=== PATIENT | male | born 1960 | race Caucasian/White ===

== ENCOUNTER 2024-04-02 09:14 | Outpatient (CLI) | payer MEDICARE, SELFPAY ==
--- NOTE | ~2024-04-02 | US_ITS ---
US arterial ankle brachial ind INDICATION: Peripheral vascular disease TECHNIQUE: Segmental pressures and plethysmographic and Doppler waveforms of the brachial and lower e xtremity arteries were obtained. COMPARISON: None. FINDINGS: Right and left brachial artery pressures of 151 mm Hg and 134 mm Hg, respectively, are concordant (no rmal difference <= 30 mmHg). The right ankle-brachial index (ALEXIS) is 0.46 (normal >= 0.9-1.0). The right great toe-brachial index (TBI) is 0.32 (normal >= 0.60). The left ALEXIS is 0.74. The left TBI is 0.5. IMPRESSION: 1. Diminished bilateral ankle and toe brachial indices consistent with moderate right and mild left p eripheral arterial disease. Reviewed, dictated and finalized at location B. IMPRESSION: 1. Diminished bilateral ankle and toe brachial indices consistent with moderate right and mild left peripheral arterial disease.
== END 2024-04-02 09:15 | disposition home or self-care (01) ==
LOC: ANHIMG 09:17
PROVIDERS: PCP Internal Medicine; Visit Provider Physician Assistant
DX: I73.9 Peripheral vascular disease, unspecified (principal)
CPT/HCPCS: 93922

== ENCOUNTER 2025-03-14 11:05 | Outpatient (CLI) | payer MEDICARE, SELFPAY ==
--- NOTE | ~2025-03-14 | CT_ITS ---
CT Scan of the Chest without Contrast: Clinical Indication: Lung cancer screening, nicotine dependence Technique: Contiguous sections were acquired throughout the chest without intravenous contrast. Dose reduction technique was used on this scan by utilizing automated exposure control and iterative recon struction technique. The dose-length product (DLP) was 69.64 mGy-cm. Findings: There is no evidence of any significant mediastinal, hilar or axillary lymphadenopathy. The calcified right hilar lymph nodes present. There is no evidence of pleural or pericardial effusion. There is mild biapical scarring. Large calcified right lower lobe granuloma present. Images through the upper abdomen reveal no abnormalities. Impression: Lung RADS 2: Benign appearance. 12 month follow-up screening CT advised. Reviewed, dictated and finalized at location . Impression: Lung RADS 2: Benign appearance. 12 month follow-up screening CT advised.
--- OUTSIDE RECORDS SUMMARY | 2025-03-14 11:11 | XMS_ITS | Referral Summary ---
Author Organization [facility] Address [address] [place] [address] Phone Care Team Providers Care Marine Superintendent Name Role Phone Ayan Us MD Primary Care Provider + [phone] Allergies No known active allergies Medications atorvastatin (LIPITOR) 10 mg tablet Take 1 tablet (10 mg total) by mouth daily Active Jardiance 10 mg tablet Take 1 tablet every day by oral route. Active glimepiride (AMARYL) 2 mg tablet Take 1 tablet (2 mg total) by mouth daily Active NovoLIN N 100 unit/mL vial for injection INJECT 25 UNITS EVERY MORNING AND 8 UNITS EVERY EVENING Active metFORMIN (GLUCOPHAGE) 500 mg tablet TAKE 2 TABLETS IN THE MORNING AND 1 TABLET IN THE EVENING Active tamsulosin (FLOMAX) 0.4 mg extended release capsule Take 1 capsule (0.4 mg total) by mouth nightly Active Active Problems Problem Noted Date Diagnosed Date Atherosclerosis of [place] of right lower extremity with intermittent claudication 07/15/2024 Mixed hyperlipidemia 07/15/2024 Tobacco abuse disorder 07/15/2024 Resolved Problems Problem Noted Date Diagnosed Date Resolved Date Bilateral lower extremity pain 07/15/2024 07/15/2024 Social History Tobacco Use Types Packs/Day Years Used Date Smoking Tobacco: Every Day Cigarettes Tobacco Cessation:Ready to Q uit: Not Asked; Counseling Given: Not Answered Sex and Gender Information Value Date Recorded Sex Assigned at Not on file Legal Sex Male 11:21 AM [employer] Gender Identity Not on file Sexual Orientation Not on file Last Filed Vital Signs Vital Sign Reading Time Taken Comments Blood Pressure 130/60 12/03/2024 12:50 PM [employer] Pulse 63 12/03/2024 12:50 PM [employer] Temperature - - Respiratory Rate 18 07/15/2024 1:10 PM CDT Oxygen Saturation - - Inhaled Oxygen Concentration - - Weight 58.5 kg (129 lb) 12/03/2024 12:50 PM [employer] Height 162.6 cm (5' 4 ) 12/03/2024 12:50 PM [employer] Body Mass Index 22.14 12/03/2024 12:50 PM [employer] Plan of Treatment Not on file Insurance [employer] MEDICARE FORMERLY [facility], [facility] MEDICARE Care Teams Marine Superintendent Relationship Specialty Start Date End Date Ayan Us MD [address] [place] [address] PCP - General Internal Medicine 06/27/24
--- OUTSIDE RECORDS SUMMARY | 2025-03-14 11:11 | XMS_ITS | Data Portability ---
Author Organization [facility] Dawn [facility] Address [address] [place] [address] Care Team Providers Care Vegetable Grader Name Role Phone PALLAVI US Primary Care Provider Assessment Encounter Date Assessment Date Assessment LastModified by Organization Details LastModified Time 02/26/2024 02/26/2024 Arterial duplex of both legs he was advised to quit smoking wound ill effects of tobacco which include but not limited to increased tumors of the aerodigestive tract increased incidence of heart attack stroke and cancer likely the sudden or chronic medical illness. Blood pressure is well-controlled targets for blood pressure A1c and LDL of been discussed to follow-up with me in about 4 months we will review blood work and noninvasive vascular testing as it becomes available also request old records [email or web address] Not available 03/02/2024 16:05:19 06/24/2024 06/24/2024 smoking quitting care instructions discussed multiple modalities Chantix nicotine patch hypnosis auricular therapy Nicotrol inhaler nicotine gum all discussed and he turns them all down was instructed in peripheral arterial disease and how tobacco can accelerate that worse case scenario that he ends up with an amputation because of acute occlusion in the arteries to his legs or starts to develop nonhealing wounds that can become infected sepsis and result in his demise. His insurance company will not pay for a CT angiogram despite the fact that he is a diabetic that smokes with hyperlipidemia hypertension and has demonstrated abnormalities on ALEXIS and symptomatic peripheral arterial occlusive disease. To that end I will refer him to an interventionalist . He will start 81 mg aspirin Not available 07/06/2024 17:58:03 09/16/2024 09/16/2024 colonoscopy bloo d work tobacco cessation discussed in detail obtain old records see when he had his last LD CT podiatry. targets for blood pressure LDL and A1c discussed follow up 4 months [email or web address] Not available 09/29/2024 21:07:18 01/06/2025 01/06/2025 He needs to quit smoking his insight into this peripheral arterial disease is poor he thinks that since his insurance company did not approve the CT angiogram that things are not that bad I have told him that if he gets an amputation because of progressive peripheral arterial disease that he does try does not try to mitigate the best he can through walking program following cardiology's instructions eating right good blood sugar control good blood pressure control not smoking good cholesterol control that the 1 year mortality on that can be as high as 25% other disease processes have been discussed he needs to get his LD CT done also needs a diabetic foot exam refuses any immunizations today he says he has a colonoscopy scheduled for February 27 follow up 4 months [email or web address] Not available 03/01/2025 22:59:05 Plan of Treatment Reminders Order Date Submit Date Provider Last Modified By Organization Details Last Modified Time Details Appointments ANY 15 2024 09:15A Morgan Us MD Not available Not available Not available Lab HbA1c (hemoglob in A1c), blood 2024 025 [facility], [address] [facility], [facility] [address], [place], [address], 01/07/2025 13:08:59 albumin/c reatinine , mass ratio, urine 2024 025 [facility], [address] [facility], [facility], [place], [address], 01/07/2025 13:08:56 CBC w/ auto diff 2024 025 [facility], [address] [facility], [facility], [place], [address], 01/07/2025 13:09:00 CMP, serum or plasma 2024 025 [facility], [address] [facility], [facility], [place], [address], 01/07/2025 13:08:58 lipid panel, serum 2024 025 [facility], [address], [address], 01/07/2025 13:08:57 HbA1c (hemoglob in A1c), blood 2023 024 [facility], [address], [address], [place], [address], 09/17/2024 10:14:56 lipid panel, serum 2023 024 [facility], [address], [address], [place], [address], 09/17/2024 10:14:53 CMP, serum or plasma 2023 024 [facility], [address], [address], [place], [address], 09/17/2024 10:14:54 CBC w/ auto diff 2023 024 [facility], [address], [address], [place], [address], 09/17/2024 10:14:57 PSA, total, serum or plasma 2023 024 [facility], [address], [address], [place], [address], 02/27/2024 04:36:32 HbA1c (hemoglob in A1c), blood 2023 024 [facility], [address], [address], [place], [address], 02/27/2024 04:36:31 lipid panel, serum 2023 024 [facility], [address] [facility] [address], [address], [place], [address], 02/27/2024 04:36:29 CMP, serum or plasma 2023 024 [facility], [address] [facility], [address], [place], [address], 02/27/2024 04:36:30 CBC w/ auto diff 2023 024 [facility], [address] [facility], [address], [place], [address], 02/27/2024 04:36:31 Referral podiatris t referral 2024 025 MAT[facility] Hutchins Jr DPM, [address], [address], [place], [address], 02/24/2025 16:05:09 cardiolog ist referral 2023 024 [facility] Winston MD, [address] [place], [address], 08/21/2024 11:23:35 Procedures colonosco py screening (PROC) [address] [facility], [address], [address], [place], [address], 03/03/2025 14:43:27 Surgeries None recorded. Imaging US, duplex, arterial, lower extremity , complete 2023 024 [facility] (Im[facility]), [address], [place], [address], 04/09/2024 14:31:29 Medication Orders atorvasta tin 10 mg tablet 2024 025 [email or web address] [place], [address], 01/06/2025 11:58:12 Patient TargetsNo targets recorded. Patient Instructions Encounter Date Encounter Id Patient Instructions Last Modified By Organization Details Last Modified Time 06/24/2024 [id number] Quitting Tobacco : Care Instructions [email or web address] Not available 06/24/2024 13:29:56 09/16/2024 [id number] Quitting Tobacco : Care Instructions [email or web address] Not available 09/16/2024 12:27:35 A healthy lifestyle: care instructions Not available 09/16/2024 12:27:35 01/06/2025 [id number] A healthy lifestyle: care instructions [email or web address] Not available 01/06/2025 11:58:12 Reason for Referral Scale Model Maker Referral for Pe ripheral vascular disease Referring Physician: Pallavi Us, Internal Medicine, Encounter Date: 06/24/2024 Holder Pile Driving Referral for Type 2 diabetes mellitus Referring Physician: Pallavi Us, Internal Medicine, Encounter Date: 01/06/2025 Results Created Date Observation Date Name Description Value Unit Range Abnormal Flag Note LastModifiedBy Organization Detail LastModifiedTime 02/26/20 24 02/27/2024 LIPID PANEL cholesterol, total 157 mg/dL 100-19 9 Not Available [facility] ([facility]) [address] [facility], [place], [address], 02/27/2024 04:36:29 02/26/20 24 02/27/2024 LIPID PANEL triglyceride s 87 mg/dL 0-149 Not Available [facility] ([facility]) [address] [place], [address], 02/27/2024 04:36:29 02/26/20 24 02/27/2024 LIPID PANEL HDL cholesterol 63 mg/dL >39 Not Available [facility] ([facility]) [address] [place], [address], 02/27/2024 04:36:29 02/26/20 24 02/27/2024 LIPID PANEL VLDL cholesterol nathanael 16 mg/dL 5-40 Not Available [facility] ([facility]) [address] [facility], [place], [address], 02/27/2024 04:36:29 02/26/20 24 02/27/2024 LIPID PANEL [facility] 78 mg/dL 0-99 Not Available [facility] ([facility]) [address] [facility], [place], [address], 02/27/2024 04:36:29 02/26/20 24 02/27/2024 COMP. METAB OLIC PANEL (14) glucose 221 mg/dL 70-99 above high normal Not Available [facility] ([facility]) [address] [facility], [place], [address], 02/27/2024 04:36:30 02/26/20 24 02/27/2024 COMP. METAB OLIC PANEL (14) BUN 18 mg/dL 8-27 Not Available [facility] ([facility]) [address] [place], [address], 02/27/2024 04:36:30 02/26/20 24 02/27/2024 COMP. METAB OLIC PANEL (14) creatinine 0.97 mg/dL 0.76-1 .27 Not Available [facility] ([facility]) [address] [facility], [place], [address], 02/27/2024 04:36:30 02/26/20 24 02/27/2024 COMP. METAB OLIC PANEL (14) eGFR 87 mL/mi n/1.7 3 >59 Not Available [facility] ([facility]) [address] [place], [address], 02/27/2024 04:36:30 02/26/20 24 02/27/2024 COMP. METAB OLIC PANEL (14) BUN/creatini ne ratio 19 10-24 Not Available [facility] ([facility]) [address] [place], [address], 02/27/2024 04:36:30 02/26/20 24 02/27/2024 COMP. METAB OLIC PANEL (14) sodium 140 mmol/ L 134-14 4 Not Available [facility] ([facility]) [address] [facility] [place], [address], 02/27/2024 04:36:30 02/26/20 24 02/27/2024 COMP. METAB OLIC PANEL (14) potassium 4.7 mmol/ L 3.5-5. 2 Not Available [facility] ([facility]) [address], [place], [address], 02/27/2024 04:36:30 02/26/20 24 02/27/2024 COMP. METAB OLIC PANEL (14) chloride 102 mmol/ L 96-106 Not Available [facility] ([facility]) [address] [facility], [place], [address], 02/27/2024 04:36:30 02/26/20 24 02/27/2024 COMP. METAB OLIC PANEL (14) carbon dioxide, total 23 mmol/ L 20-29 Not Available [facility] ([facility]) [address] [facility] [place], [address], 02/27/2024 04:36:30 02/26/20 24 02/27/2024 COMP. METAB OLIC PANEL (14) calcium 9.6 mg/dL 8.6-10 .2 Not Available [facility] ([facility]) [address] [facility], [place], [address], 02/27/2024 04:36:30 02/26/20 24 02/27/2024 COMP. METAB OLIC PANEL (14) protein, total 7.0 g/dL 6.0-8. 5 Not Available [facility] ([facility]) [address] [facility] [place], [address], 02/27/2024 04:36:30 02/26/20 24 02/27/2024 COMP. METAB OLIC PANEL (14) albumin 4.5 g/dL 3.9-4. 9 Not Available [facility] ([facility]) [address] [facility] [place], [address], 02/27/2024 04:36:30 02/26/20 24 02/27/2024 COMP. METAB OLIC PANEL (14) globulin, total 2.5 g/dL 1.5-4. 5 Not Available [facility] ([facility]) [address] [facility], [place], [address], 02/27/2024 04:36:30 02/26/20 24 02/27/2024 COMP. METAB OLIC PANEL (14) A/G ratio 1.8 1.2-2. 2 Not Available [facility] ([facility]) [address] [facility], [place], [address], 02/27/2024 04:36:30 02/26/20 24 02/27/2024 COMP. METAB OLIC PANEL (14) bilirubin, total 0.4 mg/dL 0.0-1. 2 Not Available [facility] ([facility]) [address] [facility] [place], [address], 02/27/2024 04:36:30 02/26/20 24 02/27/2024 COMP. METAB OLIC PANEL (14) alkaline phosphatase 66 IU/L 44-121 Not Available [facility] ([facility]) [address] [facility] [place], [address], 02/27/2024 04:36:30 02/26/20 24 02/27/2024 COMP. METAB OLIC PANEL (14) AST (SGOT) 15 IU/L 0-40 Not Available [facility] ([facility]) [address] [facility] [place], [address], 02/27/2024 04:36:30 02/26/20 24 02/27/2024 COMP. METAB OLIC PANEL (14) ALT (SGPT) 16 IU/L 0-44 Not Available [facility] ([facility]) [address] [facility], [place], [address], 02/27/2024 04:36:30 02/26/20 24 02/27/2024 HEMOG LOBIN A1C hemoglobin A1C 8.6 % 4.8-5. 6 above high normal Predi abete s: 5.7 - 6.4 Diabe liliane: >6.4 Glyce kaden contr ol for adult s with diabe liliane: <7.0 Not Available [facility] ([facility]) [address] [facility], [place], [address], 02/27/2024 04:36:31 02/26/20 24 02/27/2024 CBC WITH DIFFE RENTI AL/PL ATELE T WBC 9.1 x10e3 /uL 3.4-10 .8 Not Available [facility] ([facility]) [address] [place], [address], 02/27/2024 04:36:31 02/26/20 24 02/27/2024 CBC WITH DIFFE RENTI AL/PL ATELE T RBC 5.24 x10e6 /uL 4.14-5 .80 Not Available [facility] ([facility]) [address] [facility], [place], [address], 02/27/2024 04:36:31 02/26/20 24 02/27/2024 CBC WITH DIFFE RENTI AL/PL ATELE T hemoglobin 17.3 g/dL 13.0-1 7.7 Not Available [facility] ([facility]) [address] [place], [address], 02/27/2024 04:36:31 02/26/20 24 02/27/2024 CBC WITH DIFFE RENTI AL/PL ATELE T hematocrit 50.5 % 37.5-5 1.0 Not Available [facility] ([facility]) [address] [place], [address], 02/27/2024 04:36:31 02/26/20 24 02/27/2024 CBC WITH DIFFE RENTI AL/PL ATELE T MCV 96 fL 79-97 Not Available [facility] ([facility]) [address] [facility], [place], [address], 02/27/2024 04:36:31 02/26/20 24 02/27/2024 CBC WITH DIFFE RENTI AL/PL ATELE T MCH 33.0 pg 26.6-3 3.0 Not Available [facility] ([facility]) [address] [facility], [place], [address], 02/27/2024 04:36:31 02/26/20 24 02/27/2024 CBC WITH DIFFE RENTI AL/PL ATELE T MCHC 34.3 g/dL 31.5-3 5.7 Not Available [facility] ([facility]) [address] [facility], [place], [address], 02/27/2024 04:36:31 02/26/20 24 02/27/2024 CBC WITH DIFFE RENTI AL/PL ATELE T RDW 12.4 % 11.6-1 5.4 Not Available [facility] ([facility]) [address] [facility], [place], [address], 02/27/2024 04:36:31 02/26/20 24 02/27/2024 CBC WITH DIFFE RENTI AL/PL ATELE T platelets 294 x10e3 /uL 150-45 0 Not Available [facility] ([facility]) [address] [facility], [place], [address], 02/27/2024 04:36:31 02/26/20 24 02/27/2024 CBC WITH DIFFE RENTI AL/PL ATELE T neutrophils 72 % notest ab. Not Available [facility] ([facility]) [address] [facility], [place], [address], 02/27/2024 04:36:31 02/26/20 24 02/27/2024 CBC WITH DIFFE RENTI AL/PL ATELE T lymphs 19 % notest ab. Not Available [facility] ([facility]) [address] [facility], [place], [address], 02/27/2024 04:36:31 02/26/20 24 02/27/2024 CBC WITH DIFFE RENTI AL/PL ATELE T monocytes 7 % notest ab. Not Available [facility] ([facility]) [address] [facility], [place], [address], 02/27/2024 04:36:31 02/26/20 24 02/27/2024 CBC WITH DIFFE RENTI AL/PL ATELE T eos 1 % notest ab. Not Available [facility] ([facility]) [address] [facility], [place], [address], 02/27/2024 04:36:31 02/26/20 24 02/27/2024 CBC WITH DIFFE RENTI AL/PL ATELE T basos 1 % notest ab. Not Available [facility] ([facility]) [address] [facility], [place], [address], 02/27/2024 04:36:31 02/26/20 24 02/27/2024 CBC WITH DIFFE RENTI AL/PL ATELE T neutrophils (absolute) 6.6 x10e3 /uL 1.4-7. 0 Not Available [facility] ([facility]) [address] [facility], [place], [address], 02/27/2024 04:36:31 02/26/20 24 02/27/2024 CBC WITH DIFFE RENTI AL/PL ATELE T lymphs (absolute) 1.7 x10e3 /uL 0.7-3. 1 Not Available [facility] ([facility]) [address] [facility], [place], [address], 02/27/2024 04:36:31 02/26/20 24 02/27/2024 CBC WITH DIFFE RENTI AL/PL ATELE T monocytes(ab solute) 0.6 x10e3 /uL 0.1-0. 9 Not Available [facility] ([facility]) [address] [facility], [place], [address], 02/27/2024 04:36:31 02/26/20 24 02/27/2024 CBC WITH DIFFE RENTI AL/PL ATELE T eos (absolute) 0.1 x10e3 /uL 0.0-0. 4 Not Available [facility] ([facility]) [address] [place], [address], 02/27/2024 04:36:31 02/26/20 24 02/27/2024 CBC WITH DIFFE RENTI AL/PL ATELE T baso (absolute) 0.1 x10e3 /uL 0.0-0. 2 Not Available [facility] ([facility]) [address] [place], [address], 02/27/2024 04:36:31 02/26/20 24 02/27/2024 CBC WITH DIFFE RENTI AL/PL ATELE T immature granulocytes 0 % notest ab. Not Available [facility] ([facility]) [address] [facility], [place], [address], 02/27/2024 04:36:31 02/26/20 24 02/27/2024 CBC WITH DIFFE RENTI AL/PL ATELE T immature grans (abs) 0.0 x10e3 /uL 0.0-0. 1 Not Available [facility] ([facility]) [address] [place], [address], 02/27/2024 04:36:31 02/26/20 24 02/27/2024 PROST ATE-S PECIF IC AG prostate specific Ag 1.2 NG/mL 0.0-4. 0 Isela ECLIA metho dolog y. Accor ding to the Ameri can [employer] g[employer] iatio n, Serum PSA shoul d decre ase and remai n at undet ectab le level s after radic al prost atect naresh. The AUA defin es bioch emica l recur rence as an initi al PSA value 0.2 ng/mL or great er follo wed by a subse quent confi rmato ry PSA value 0.2 ng/mL or great er. Value s obtai darren with diffe rent assay metho ds or kits canno t be used inter flowers eably . Resul ts canno t be inter prete d as absol [facility] evide nce of the prese nce or absen ce of [facility] se. Not Available [facility] ([facility]) [address] [place], [address], 02/27/2024 04:36:32 09/16/20 24 09/17/2024 LIPID PANEL cholesterol, total 148 mg/dL 100-19 9 Not Available [facility] ([facility]) [address] [place], [address], 09/17/2024 10:14:53 09/16/20 24 09/17/2024 LIPID PANEL triglyceride s 76 mg/dL 0-149 Not Available [facility] ([facility]) [address] [place], [address], 09/17/2024 10:14:53 09/16/20 24 09/17/2024 LIPID PANEL HDL cholesterol 63 mg/dL >39 Not Available [facility] ([facility]) [address] [place], [address], 09/17/2024 10:14:53 09/16/20 24 09/17/2024 LIPID PANEL VLDL cholesterol nathanael 15 mg/dL 5-40 Not Available [facility] ([facility]) [address] [place], [address], 09/17/2024 10:14:53 09/16/20 24 09/17/2024 LIPID PANEL LDL chol [facility] 70 mg/dL 0-99 Not Available [facility] ([facility]) [address] [place], [address], 09/17/2024 10:14:53 09/16/20 24 09/17/2024 COMP. METAB OLIC PANEL (14) glucose 85 mg/dL 70-99 Not Available [facility] ([facility]) [address] [facility], [place], [address], 09/17/2024 10:14:54 09/16/20 24 09/17/2024 COMP. METAB OLIC PANEL (14) BUN 16 mg/dL 8-27 Not Available [facility] ([facility]) [address] [place], [address], 09/17/2024 10:14:54 09/16/20 24 09/17/2024 COMP. METAB OLIC PANEL (14) creatinine 0.95 mg/dL 0.76-1 .27 Not Available [facility] ([facility]) [address] [facility], [place], [address], 09/17/2024 10:14:54 09/16/20 24 09/17/2024 COMP. METAB OLIC PANEL (14) eGFR 88 mL/mi n/1.7 3 >59 Not Available [facility] ([facility]) [address] [facility], [place], [address], 09/17/2024 10:14:54 09/16/20 24 09/17/2024 COMP. METAB OLIC PANEL (14) BUN/creatini ne ratio 17 10-24 Not Available [facility] ([facility]) [address] [place], [address], 09/17/2024 10:14:54 09/16/20 24 09/17/2024 COMP. METAB OLIC PANEL (14) sodium 141 mmol/ L 134-14 4 Not Available [facility] ([facility]) [address] [place], [address], 09/17/2024 10:14:54 09/16/20 24 09/17/2024 COMP. METAB OLIC PANEL (14) potassium 4.6 mmol/ L 3.5-5. 2 Not Available [facility] ([facility]) [address] [place], [address], 09/17/2024 10:14:54 09/16/20 24 09/17/2024 COMP. METAB OLIC PANEL (14) chloride 102 mmol/ L 96-106 Not Available [facility] ([facility]) [address] [place], [address], 09/17/2024 10:14:54 09/16/20 24 09/17/2024 COMP. METAB OLIC PANEL (14) carbon dioxide, total 26 mmol/ L 20-29 Not Available [facility] ([facility]) [address] [place], [address], 09/17/2024 10:14:54 09/16/20 24 09/17/2024 COMP. METAB OLIC PANEL (14) calcium 9.4 mg/dL 8.6-10 .2 Not Available [facility] ([facility]) [address] [place], [address], 09/17/2024 10:14:54 09/16/20 24 09/17/2024 COMP. METAB OLIC PANEL (14) protein, total 6.9 g/dL 6.0-8. 5 Not Available [facility] ([facility]) [address] [place], [address], 09/17/2024 10:14:54 09/16/20 24 09/17/2024 COMP. METAB OLIC PANEL (14) albumin 4.4 g/dL 3.9-4. 9 Not Available [facility] ([facility]) [address] [place], [address], 09/17/2024 10:14:54 09/16/20 24 09/17/2024 COMP. METAB OLIC PANEL (14) globulin, total 2.5 g/dL 1.5-4. 5 Not Available [facility] ([facility]) [address] [place], [address], 09/17/2024 10:14:54 09/16/20 24 09/17/2024 COMP. METAB OLIC PANEL (14) bilirubin, total 0.3 mg/dL 0.0-1. 2 Not Available [facility] ([facility]) [address] [place], [address], 09/17/2024 10:14:54 09/16/20 24 09/17/2024 COMP. METAB OLIC PANEL (14) alkaline phosphatase 57 IU/L 44-121 Not Available [facility] ([facility]) [address] [facility], [place], [address], 09/17/2024 10:14:54 09/16/20 24 09/17/2024 COMP. METAB OLIC PANEL (14) AST (SGOT) 18 IU/L 0-40 Not Available [facility] ([facility]) [address] [facility], [place], [address], 09/17/2024 10:14:54 09/16/20 24 09/17/2024 COMP. METAB OLIC PANEL (14) ALT (SGPT) 16 IU/L 0-44 Not Available [facility] ([facility]) [address] [place], [address], 09/17/2024 10:14:54 09/16/20 24 09/17/2024 HEMOG LOBIN A1C hemoglobin A1C 7.0 % 4.8-5. 6 above high normal Predi abete s: 5.7 - 6.4 Diabe liliane: >6.4 Glyce kaden contr ol for adult s with diabe liliane: <7.0 Not Available [facility] ([facility]) [address] [facility], [place], [address], 09/17/2024 10:14:56 09/16/20 24 09/17/2024 CBC WITH DIFFE RENTI AL/PL ATELE T WBC 7.6 x10e3 /uL 3.4-10 .8 Not Available [facility] ([facility]) [address] [facility], [place], [address], 09/17/2024 10:14:57 09/16/20 24 09/17/2024 CBC WITH DIFFE RENTI AL/PL ATELE T RBC 4.79 x10e6 /uL 4.14-5 .80 Not Available [facility] ([facility]) [address] [facility], [place], [address], 09/17/2024 10:14:57 09/16/2009/17/2024 CBC WITH DIFFE RENTI AL/PL ATELE T hemoglobin 15.7 g/dL 13.0-1 7.7 Not Available [facility] ([facility]) [address] [place], [address], 09/17/2024 10:14:57 09/16/20 24 09/17/2024 CBC WITH DIFFE RENTI AL/PL ATELE T hematocrit 46.7 % 37.5-5 1.0 Not Available [facility] ([facility]) [address] [place], [address], 09/17/2024 10:14:57 09/16/20 24 09/17/2024 CBC WITH DIFFE RENTI AL/PL ATELE T MCV 98 fL 79-97 above high normal Not Available [facility] ([facility]) [address] [place], [address], 09/17/2024 10:14:57 09/16/20 24 09/17/2024 CBC WITH DIFFE RENTI AL/PL ATELE T MCH 32.8 pg 26.6-3 3.0 Not Available [facility] ([facility]) [address] [place], [address], 09/17/2024 10:14:57 09/16/20 24 09/17/2024 CBC WITH DIFFE RENTI AL/PL ATELE T MCHC 33.6 g/dL 31.5-3 5.7 Not Available [facility] ([facility]) [address] [facility], [place], [address], 09/17/2024 10:14:57 09/16/20 24 09/17/2024 CBC WITH DIFFE RENTI AL/PL ATELE T RDW 13.1 % 11.6-1 5.4 Not Available [facility] ([facility]) [address] [facility] [address], [place], [address], 09/17/2024 10:14:57 09/16/20 24 09/17/2024 CBC WITH DIFFE RENTI AL/PL ATELE T platelets 329 x10e3 /uL 150-45 0 Not Available [facility] ([facility]) [address] [facility] [address], [place], [address], 09/17/2024 10:14:57 09/16/20 24 09/17/2024 CBC WITH DIFFE RENTI AL/PL ATELE T neutrophils 62 % notest ab. Not Available [facility] ([facility]) [address] [facility] [address], [place], [address], 09/17/2024 10:14:57 09/16/20 24 09/17/2024 CBC WITH DIFFE RENTI AL/PL ATELE T lymphs 26 % notest ab. Not Available [facility] ([facility]) [address] [facility] [address], [place], [address], 09/17/2024 10:14:57 09/16/20 24 09/17/2024 CBC WITH DIFFE RENTI AL/PL ATELE T monocytes 9 % notest ab. Not Available [facility] ([facility]) [address] [facility] [address], [place], [address], 09/17/2024 10:14:57 09/16/20 24 09/17/2024 CBC WITH DIFFE RENTI AL/PL ATELE T eos 2 % notest ab. Not Available [facility] ([facility]) [address] [facility] [address], [place], [address], 09/17/2024 10:14:57 09/16/20 24 09/17/2024 CBC WITH DIFFE RENTI AL/PL ATELE T basos 1 % notest ab. Not Available [facility] ([facility]) [address] [facility] [address], [place], [address], 09/17/2024 10:14:57 09/16/20 24 09/17/2024 CBC WITH DIFFE RENTI AL/PL ATELE T neutrophils (absolute) 4.8 x10e3 /uL 1.4-7. 0 Not Available [facility] ([facility]) [address] [facility] [address], [place], [address], 09/17/2024 10:14:57 09/16/20 24 09/17/2024 CBC WITH DIFFE RENTI AL/PL ATELE T lymphs (absolute) 2.0 x10e3 /uL 0.7-3. 1 Not Available [facility] ([facility]) [address] [facility] [address], [place], [address], 09/17/2024 10:14:57 09/16/20 24 09/17/2024 CBC WITH DIFFE RENTI AL/PL ATELE T monocytes(ab solute) 0.7 x10e3 /uL 0.1-0. 9 Not Available [facility] ([facility]) [address] [facility] [address], [place], [address], 09/17/2024 10:14:57 09/16/20 24 09/17/2024 CBC WITH DIFFE RENTI AL/PL ATELE T eos (absolute) 0.2 x10e3 /uL 0.0-0. 4 Not Available [facility] ([facility]) [address] [facility] [address], [place], [address], 09/17/2024 10:14:57 09/16/20 24 09/17/2024 CBC WITH DIFFE RENTI AL/PL ATELE T baso (absolute) 0.0 x10e3 /uL 0.0-0. 2 Not Available [facility] ([facility]) [address] [facility] [address], [place], [address], 09/17/2024 10:14:57 09/16/20 24 09/17/2024 CBC WITH DIFFE RENTI AL/PL ATELE T immature granulocytes 0 % notest ab. Not Available [facility] ([facility]) [address] [facility] [address], [place], [address], 09/17/2024 10:14:57 09/16/20 24 09/17/2024 CBC WITH DIFFE RENTI AL/PL ATELE T immature grans (abs) 0.0 x10e3 /uL 0.0-0. 1 Not Available [facility] ([facility]) [address] [facility] [address], [place], [address], 09/17/2024 10:14:57 01/07/20 25 01/07/2025 ALBUM IN/CR EATIN INE RATIO ,URIN E creatinine, urine 38.2 mg/dL notest ab. Not Available [facility] ([facility]) [address] [facility] [address], [place], [address], 01/07/2025 13:08:56 01/07/20 25 01/07/2025 ALBUM IN/CR EATIN INE RATIO ,URIN E albumin, urine <3.0 ug/mL notest ab. Not Available [facility] ([facility]) [address] [place], [address], 01/07/2025 13:08:56 01/07/20 25 01/07/2025 ALBUM IN/CR EATIN INE RATIO ,URIN E alb/creat ratio <8 Gretchen l: 0 - 29 Moder ately incre ased: 30 - 300 Sever april incre ased: >300 Not Available [facility] ([facility]) [address] [place], [address], 01/07/2025 13:08:56 01/07/20 25 01/07/2025 LIPID PANEL cholesterol, total 145 mg/dL 100-19 9 Not Available [facility] ([facility]) [address] [facility] [address], [place], [address], 01/07/2025 13:08:57 01/07/20 25 01/07/2025 LIPID PANEL triglyceride s 74 mg/dL 0-149 Not Available [facility] ([facility]) [address] [facility] [address], [place], [address], 01/07/2025 13:08:57 [id number]|2025-03-14 11:12:00|2025-03-14 11:11:00|XMS_ITS|ROBERT GARCIA|External Medical Summaries|[id number]|" Data Portability Created on: March 14, 2025 Chaim Beasley .[id number] : 1960 Sex: Male Author Organization [email or web address], Main Office Address [address] [place] [address] Assessment Encounter Date Assessment Date Assessment LastModified by Organization Details LastModified Time 05/29/2023 05/29/2023 Diabetes dyslipidemia discussed smoking cessation discussed warned of the ill effects of tobacco which were included but not limited to increased tumors of aerodigestive tract increase incidence of heart attack and stroke that could lead to sudden or chronic medical illness blood work has been ordered follow-up in 6 months [email or web address] Not available 05/29/2023 18:38:38 11/22/2023 11/22/2023 Advised to quit smoking diagnosis assessment plan been discussed would like to see little bit better sugar control follow-up 4 months [email or web address] Not available 11/28/2023 22:19:50 Plan of Treatment Reminders Order Date Submit Date Provider Last Modified By Organization Details Last Modified Time Details Appointments None recorded. Lab urinalysis , dipstick 2022 023 [email or web address] [id number] [facility] [address], [place], [address], 3 15:04:02 CMP, serum or plasma 2022 023 MATTHIEU Not available 3 14:28:01 lipid panel, serum 2022 023 MATTHIEU Not available 3 14:28:03 CBC w/ auto diff 2022 023 MATTHIEU Not available 3 13:40:24 HbA1c (hemoglobi n A1c), blood 2022 023 cyahl Not available 4 11:13:59 albumin/cr eatinine, mass ratio, urine 2022 023 cyahl Not available 4 11:13:59 Referral None recorded. Procedures None recorded. Surgeries None recorded. Imaging US, bladder 2022 023 [id number] 9 s_[facility] [address], [place], [address], 3 15:04:02 Medication Orders None recorded. Patient TargetsNo targets recorded. Patient InstructionsNo instructions recorded. Reason for Referral None Reported. Results Created Date Observation Date Name Description Value Unit Range Abnormal Flag Note LastModifiedBy Organization Detail LastModifiedTime 12/12/19 23 12/12/2022 urina lysis , dipst ick Leukocytes (reference range: negative chiara/ l) Negati ve Not Available [facility] [address] [facility] [address], [place], [address], 12/12/2022 08:43:20 12/12/19 23 12/12/2022 urina lysis , dipst ick Nitrite (reference rage: negative mg/dl) negati ve Not Available [address], [address], 12/12/2022 08:43:20 12/12/19 23 12/12/2022 urina lysis , dipst ick Urobilinogen (reference range: 0.2-1 mg/dl) 0.2 Not Available [address], [address], 12/12/2022 08:43:20 12/12/19 23 12/12/2022 urina lysis , dipst ick Protein (reference range: negative mg/dl) Negati ve Not Available [address], [address], 12/12/2022 08:43:20 12/12/19 23 12/12/2022 urina lysis , dipst ick pH (reference range: 5-7) 5.0 Not Available [address], [address], 12/12/2022 08:43:20 12/12/19 23 12/12/2022 urina lysis , dipst ick Blood (reference range: negative Willie/ l) Non-He molyze d: Trace Not Available [address], [address], 12/12/2022 08:43:20 12/12/19 23 12/12/2022 urina lysis , dipst ick Specific [place] (reference range: 1.005-1.030) 1.020 Not Available [address], [address], [address], 12/12/2022 08:43:20 12/12/19 23 12/12/2022 urina lysis , dipst ick Ketone (reference range: negative mg/dl) Negati ve Not Available [address], [address], 12/12/2022 08:43:20 12/12/1912/12/2022 urina lysis , dipst ick Bilirubin (reference range: negative mg/dl) Negati ve Not Available [address], [address], 12/12/2022 08:43:20 12/12/19 23 12/12/2022 urina lysis , dipst ick Glucose (reference range: negative mg/dl) 1000 Not Available [address], [address], 12/12/2022 08:43:20 12/12/19 23 12/12/2022 urina lysis , dipst ick Appearance Clear Not Available [address], [address], 12/12/2022 08:43:20 12/12/1912/12/2022 urina lysis , dipst ick Color Yellow Not Available [address], [address], 12/12/2022 08:43:20 05/29/2005/29/2023 CBC/C OMPLE TE BLD COUNT W/DIF F white blood cells 9.9 x10'3 /uL 4.2-10 .8 Not Available [facility] (Lab) [address] [place], [address], 05/29/2023 13:40:24 05/29/20 23 05/29/2023 CBC/C OMPLE TE BLD COUNT W/DIF F red blood cells 5.05 x10'6 /uL 4.10-5 .80 Not Available [facility] (Lab) [address] [place], [address], 05/29/2023 13:40:24 05/29/20 23 05/29/2023 CBC/C OMPLE TE BLD COUNT W/DIF F hemoglobin 16.4 g/dL 13.2-1 7.0 Not Available [facility] (Lab) [address] [place], [address], 05/29/2023 13:40:24 05/29/20 23 05/29/2023 CBC/C OMPLE TE BLD COUNT W/DIF F hematocrit 49.0 % 39.3-5 0.0 Not Available [facility] (Lab) [address] [place], [address], 05/29/2023 13:40:24 05/29/20 23 05/29/2023 CBC/C OMPLE TE BLD COUNT W/DIF F mean red cell volume 97.0 fL 80.0-9 7.0 Not Available [facility] (Lab) [address] [place], [address], 05/29/2023 13:40:24 05/29/20 23 05/29/2023 CBC/C OMPLE TE BLD COUNT W/DIF F mean red cell hemoglobin 32.5 pg 27.0-3 3.0 Not Available [facility] (Lab) [address] [facility] [place], [address], 05/29/2023 13:40:24 05/29/20 23 05/29/2023 CBC/C OMPLE TE BLD COUNT W/DIF F mean RBC HGB concentratio n 33.5 g/dL 31.0-3 6.0 Not Available [facility] (Lab) [address] [place], [address], 05/29/2023 13:40:24 05/29/20 23 05/29/2023 CBC/C OMPLE TE BLD COUNT W/DIF F red cell distribution width 14.1 % 11.8-1 5.5 Not Available [facility] (Lab) [address] [place], [address], 05/29/2023 13:40:24 05/29/20 23 05/29/2023 CBC/C OMPLE TE BLD COUNT W/DIF F platelets 341 x10'3 /uL 150-40 0 Not Available [facility] (Lab) [address] [place], [address], 05/29/2023 13:40:24 05/29/20 23 05/29/2023 CBC/C OMPLE TE BLD COUNT W/DIF F mean platelet volume 10.2 fL 9.0-12 .4 Not Available [facility] (Lab) [address] [place], [address], 05/29/2023 13:40:24 05/29/20 23 05/29/2023 CBC/C OMPLE TE BLD COUNT W/DIF F neutrophils 71.2 % 39.0-7 2.0 Not Available [facility] (Lab) [address] [place], [address], 05/29/2023 13:40:24 05/29/20 23 05/29/2023 CBC/C OMPLE TE BLD COUNT W/DIF F lymphocytes 19.4 % 16.0-4 7.0 Not Available [facility] (Lab) [address] [place], [address], 05/29/2023 13:40:24 05/29/20 23 05/29/2023 CBC/C OMPLE TE BLD COUNT W/DIF F monocytes 7.6 % 5.0-12 .0 Not Available [facility] (Lab) [address] [place], [address], 05/29/2023 13:40:24 05/29/20 23 05/29/2023 CBC/C OMPLE TE BLD COUNT W/DIF F eosinophils 1.2 % 1.0-7. 0 Not Available [facility] (Lab) [address] [place], [address], 05/29/2023 13:40:24 05/29/20 23 05/29/2023 CBC/C OMPLE TE BLD COUNT W/DIF F basophils 0.4 % 0.0-2. 0 Not Available [facility] (Lab) [address] [place], [address], 05/29/2023 13:40:24 05/29/20 23 05/29/2023 CBC/C OMPLE TE BLD COUNT W/DIF F immature granulocytes 0.2 % 0.00-0 .50 Not Available [facility] (Lab) [address] [place], [address], 05/29/2023 13:40:24 05/29/20 23 05/29/2023 CBC/C OMPLE TE BLD COUNT W/DIF F neutrophils, absolute count 7.03 x10'3 /uL 1.5-8. 0 Not Available [facility] (Lab) [address] [place], [address], 05/29/2023 13:40:24 05/29/20 23 05/29/2023 CBC/C OMPLE TE BLD COUNT W/DIF F lymphocytes, absolute count 1.91 x10'3 /uL 1.07-3 .43 Not Available [facility] (Lab) [address] [place], [address], 05/29/2023 13:40:24 05/29/20 23 05/29/2023 CBC/C OMPLE TE BLD COUNT W/DIF F monocytes, absolute count 0.75 x10'3 /uL 0.29-0 .99 Not Available [facility] (Lab) [address] [facility] [place], [address], 05/29/2023 13:40:24 05/29/20 23 05/29/2023 CBC/C OMPLE TE BLD COUNT W/DIF F eosinophils, absolute count 0.12 x10'3 /uL 0.02-0 .53 Not Available [facility] (Lab) [address] [place], [address], 05/29/2023 13:40:24 05/29/20 23 05/29/2023 CBC/C OMPLE TE BLD COUNT W/DIF F basophils, absolute count 0.04 x10'3 /uL 0.01-0 .08 Not Available [facility] (Lab) [address] [place], [address], 05/29/2023 13:40:24 05/29/20 23 05/29/2023 CBC/C OMPLE TE BLD COUNT W/DIF F immature granulocytes ,absolute 0.02 x10'3 /uL 0.00-0 .05 Not Available [facility] (Lab) [address] [place], [address], 05/29/2023 13:40:24 05/29/20 23 05/29/2023 CBC/C OMPLE TE BLD COUNT W/DIF F nucleated red blood cells 0.0 % -0 Not Available [facility] (Lab) [address] [place], [address], 05/29/2023 13:40:24 05/29/20 23 05/29/2023 CBC/C OMPLE TE BLD COUNT W/DIF F NRBC# 0.00 x10'3 /uL Not Available [facility] (Lab) [address] [place], [address], 05/29/2023 13:40:24 05/29/20 23 05/29/2023 MICRO ALBUM N RNDM W/CRE AT RATIO ur creat 71.75 mg/dL REFER ENCE RANGE NOT ESTAB LISHE D FOR RANDO M URINE CREAT ININE Not Available [facility] (Lab) [address] [place], [address], 05/29/2023 14:29:49 05/29/20 23 05/29/2023 MICRO ALBUM N RNDM W/CRE AT RATIO microalbumin , urine <6.0 mg/L 0.0-16 .6 Not Available [facility] (Lab) [address] [place], [address], 05/29/2023 14:29:49 05/29/20 23 05/29/2023 COMPR EHENS SCARLET METAB OLIC PANEL sodium 138 mmol/ L 137-14 5 Not Available [facility] (Lab) [address] [place], [address], 05/29/2023 14:28:01 05/29/20 23 05/29/2023 COMPR EHENS SCARLET METAB OLIC PANEL potassium 4.3 mmol/ L 3.5-5. 1 Not Available [facility] (Lab) [address] [place], [address], 05/29/2023 14:28:01 05/29/20 23 05/29/2023 COMPR EHENS SCARLET METAB OLIC PANEL chloride 104 mmol/ L 98-107 Not Available [facility] (Lab) [address] [place], [address], 05/29/2023 14:28:01 05/29/20 23 05/29/2023 COMPR EHENS SCARLET METAB OLIC PANEL carbon dioxide 24 mmol/ L 22-30 Not Available [facility] (Lab) [address] [place], [address], 05/29/2023 14:28:01 05/29/20 23 05/29/2023 COMPR EHENS SCARLET METAB OLIC PANEL anion gap 14.3 mmol/ L 14-22 Not Available [facility] (Lab) [address] [place], [address], 05/29/2023 14:28:01 05/29/20 23 05/29/2023 COMPR EHENS SCARLET METAB OLIC PANEL glucose 96 mg/dL 70-99 Not Available [facility] (Lab) [address] [place], [address], 05/29/2023 14:28:01 05/29/20 23 05/29/2023 COMPR EHENS SCARLET METAB OLIC PANEL BUN 16 mg/dL 8-19 Not Available [facility] (Lab) [address] [place], [address], 05/29/2023 14:28:01 05/29/20 23 05/29/2023 COMPR EHENS SCARLET METAB OLIC PANEL creatinine 0.68 mg/dL 0.66-1 .25 Not Available [facility] (Lab) [address] [place], [address], 05/29/2023 14:28:01 05/29/20 23 05/29/2023 COMPR EHENS SCARLET METAB OLIC PANEL GFR >60 Refer ence Range : [employer] ge GFR Healt hy Adult : >60 mL/mi n/1.7 3 m2 Chron ic Kidne y Disea se: 15-60 mL/mi n/1.7 3 m2 Kidne y Failu re: <15/m L/min /1.73 m2 www.n iddk. nih.g ov The MDRD study equat ion has not been valid ated in child josé antonio <18 years of age; pregn ant women ; the elder ly >85 years of age; or in some racia l or ethni c subgr oups, such as Hispa nics. Outsi de the valid ated beryl eters , estim ated GFR is less accur ate, requi ring clini nathanael judgm ent on a case- by-ca se basis . Clini nathanael inter preta tion for other races and ages must be made by the clini liu. The MDRD study equat ion has not been valid ated for the evalu ation of serum creat inine relat ed to nutri maile l statu s or medic ation usage . For perso ns <18 years of age, a pedia tric GFR calcu lator is avail able on the F websi te: https ://ww w.kid kandis.o rg/pr ofess ional s/kdo qi/gf r_cal culat or Not Available [facility] (Lab) [address] [place], [address], 05/29/2023 14:28:01 05/29/20 23 05/29/2023 COMPR EHENS SCARLET METAB OLIC PANEL alkaline phosphatase 53 U/L 38-126 Not Available [facility] (Lab) [address] [place], [address], 05/29/2023 14:28:01 05/29/20 23 05/29/2023 COMPR EHENS SCARLET METAB OLIC PANEL alanine aminotransfe rase 20 U/L 0-50 Not Available [facility] (Lab) [address] [place], [address], 05/29/2023 14:28:01 05/29/20 23 05/29/2023 COMPR EHENS SCARLET METAB OLIC PANEL aspartate aminotransfe rase 27 U/L 15-46 Not Available [facility] (Lab) [address] [place], [address], 05/29/2023 14:28:01 05/29/20 23 05/29/2023 COMPR EHENS SCARLET METAB OLIC PANEL bilirubin, total 0.40 mg/dL 0.20-1 .30 Not Available [facility] (Lab) [address] [place], [address], 05/29/2023 14:28:01 05/29/20 23 05/29/2023 COMPR EHENS SCARLET METAB OLIC PANEL calcium 8.7 mg/dL 8.4-10 .2 Not Available [facility] (Lab) [address] [place], [address], 05/29/2023 14:28:01 05/29/20 23 05/29/2023 COMPR EHENS SCARLET METAB OLIC PANEL total protein 6.7 g/dL 6.3-8. 2 Not Available [facility] (Lab) [address] [facility] [place], [address], 05/29/2023 14:28:01 05/29/20 23 05/29/2023 COMPR EHENS SCARLET METAB OLIC PANEL albumin 3.9 g/dL 3.0-4. 4 Not Available [facility] (Lab) [address] [place], [address], 05/29/2023 14:28:01 05/29/20 23 05/29/2023 COMPR EHENS SCARLET METAB OLIC PANEL globulin 2.8 g/dL 2.6-4. 2 Not Available [facility] (Lab) [address] [place], [address], 05/29/2023 14:28:01 05/29/20 23 05/29/2023 COMPR EHENS SCARLET METAB OLIC PANEL A/G ratio 1.4 ratio 1.0-2. 0 Not Available [facility] (Lab) [address] [place], [address], 05/29/2023 14:28:01 05/29/2005/29/2023 LIPID PANEL cholesterol 116 mg/dL 140-19 9 low NIH PREET NSUS RECOM MENDA TION FOR LILLIAN STERO L: ADULT CHILD LOW RISK: <200 <170 BORDE RLINE : <200- 239 ----- HIGH RISK: >240 >200 Not Available [facility] (Lab) [address] [place], [address], 05/29/2023 14:28:03 05/29/2005/29/2023 LIPID PANEL triglyceride s 69 mg/dL 0-150 NIH PREET NSUS REPOR T RECOM MENDA TION FOR TRIGL YCERI NELDA: ADULT CHILD LOW RISK: <150 ----- BODER LINE: 150-1 99 ----- HIGH RISK: >200 ----- Not Available [facility] (Lab) [address] [place], [address], 05/29/2023 14:28:03 05/29/2005/29/2023 LIPID PANEL HDL cholesterol 60 mg/dL 40- Not Available [facility] (Lab) [address] [place], [address], 05/29/2023 14:28:03 05/29/20 23 05/29/2023 LIPID PANEL LDL cholesterol, calculated 42 mg/dL 0-130 NIH PREET NSUS REPOR T RECOM MENDA TIONS FOR LDL: ADULT CHILD LOW RISK <130 <110 (OPTI MAL LDL) <100 ----- BORDE RLINE : 130-1 59 ----- HIGH RISK: >160 >130 A TRIGL YCERI DE RESUL T >400 INVAL IDATE S THE CALCU LATIO N FOR LDL FRACT IONAT ION - THE LDL RESUL T WILL NOT BE REPOR YAAKOV. Not Available [facility] (Lab) [address] [place], [address], 05/29/2023 14:28:03 05/29/2005/29/2023 HEMOG LOBIN A1C HA1C 8.2 % 4.0-6. 0 high Diabe liliane Scree maged Crite loreta: <5.7% Consi stent with absen ce of diabe liliane 5.7-6 .4% Consi stent with incre ased risk for diabe liliane (pred iabet es) >OR=6 .5% Consi stent with diabe liliane REFER ENCE: Diabe liliane Care 2016, 39(George ppl.1 ):s13 -s22 Not Available [facility] (Lab) [address], [place], [address], 05/29/2023 16:31:51 06/19/20 23 06/19/2023 urina lysis , dipst ick Leukocytes (reference range: negative chiara/ l) Negati ve Not Available [facility] [address], [place], [address], 06/19/2023 13:27:30 06/19/20 23 06/19/2023 urina lysis , dipst ick Nitrite (reference rage: negative mg/dl) negati ve Not Available [facility] [address], [place], [address], 06/19/2023 13:27:30 06/19/20 23 06/19/2023 urina lysis , dipst ick Urobilinogen (reference range: 0.2-1 mg/dl) 0.2 Not Available [facility] [address], [place], [address], 06/19/2023 13:27:30 06/19/20 23 06/19/2023 urina lysis , dipst ick Protein (reference range: negative mg/dl) Negati ve Not Available [facility] [address], [place], [address], 06/19/2023 13:27:30 06/19/20 23 06/19/2023 urina lysis , dipst ick pH (reference range: 5-7) 6.0 Not Available [facility] [address], [address], 06/19/2023 13:27:30 06/19/20 23 06/19/2023 urina lysis , dipst ick Blood (reference range: negative Willie/ l) Negati ve Not Available [facility] [address], [place], [address], 06/19/2023 13:27:30 06/19/20 23 06/19/2023 urina lysis , dipst ick Specific [place] (reference range: 1.005-1.030) 1.010 Not Available [facility] [address], [place], [address], 06/19/2023 13:27:30 06/19/20 23 06/19/2023 urina lysis , dipst ick Ketone (reference range: negative mg/dl) Negati ve Not Available [facility] [address], [place], [address], 06/19/2023 13:27:30 06/19/20 23 06/19/2023 urina lysis , dipst ick Bilirubin (reference range: negative mg/dl) Negati ve Not Available [facility] [address], [place], [address], 06/19/2023 13:27:30 06/19/20 23 06/19/2023 urina lysis , dipst ick Glucose (reference range: negative mg/dl) 500 Not Available [facility] [address], [place], [address], 06/19/2023 13:27:30 06/19/20 23 06/19/2023 urina lysis , dipst ick Appearance Clear Not Available [facility] [address], [place], [address], 06/19/2023 13:27:30 06/19/20 23 06/19/2023 urina lysis , dipst ick Color Yellow Not Available [facility] [address] [place] [address] [address], [place], [address], 06/19/2023 13:27:30 12/12/19 23 12/12/2022 US, bladd er No observ ation record ed. [id number] [facility] [place] [address] [facility], [address], [place], [address], 12/28/2022 06:20:56 06/19/20 23 06/19/2023 [place], bladd er No observ ation record ed. Ahs_g[facility] Ent [place] [address] [place] [address] [address], [place], [address], 06/19/2023 17:08:41 Result Notes None recorded. Problems Name Problem SNOMED Code Status Onset Date Resolution Date Notes Provider Name and Address Organization Details Recorded Time Nocturia 959411064 Active 2022 Not Available [facility] 09:05:55 Contusion, fingernail (includes subungual hematoma) Active Not Available [facility] 09:05:55 Screening for malignant neoplasm of colon Active 2021 Not Available [facility] 3 09:05:55 Dyslipidem ia 153181583 Active 2019 Not Available [facility] 3 09:05:55 Uncontroll ed type 2 diabetes mellitus 543040290 Active Not Available [facility] 3 09:05:55 Diabetes mellitus 26349724 Active Not Available [facility] 3 09:05:55 Nicotine dependence 60220027 Active 2022 Not Available [facility] 3 09:05:55 Lower urinary tract symptoms due to benign prostatic hypertroph y 2619330851520 1 Active 2022 Felipe Rivas, BACKGROUND INVESTIGATOR [address], [address], [place], [address] , [place] [facility] 13:27:24 Problem Notes None recorded. Procedures Surgical History Date Name Laterality Status Provider Name and Address Organization Details Recorded Time 2 Colonoscopy completed Not Available [facility] 12/29/19 06:08:21 Imaging Results Imaging Date Name Status LastModified by Organiz ation Details LastModified Time 12/12/2022 US, bladder completed [id number] [facility] [address], [address], [place], [address], 12/28/2022 06:20:56 06/19/2023 US, bladder completed [id number] [place] [address], [place], [address], 06/19/2023 17:08:41 Procedure Notes None recorded. Medical Equipment None Reported. Allergies No known drug allergies Medications Name Sig Start Date Stop Date Status Note LastModified by Organization Details LastModified Time amoxicill in 500 mg capsule 02/10 completed Not Available Not Available Not Available metformin 500 mg tablet active Not Available Not Available Not Available atorvasta tin 10 mg tablet TAKE 1 TABLET DAILY active Not Available Not Available No t Available Novolin N NPH U-100 Insulin isophane 100 unit/mL subcutane ous susp INJECT 25 UNITS EVERY MORNING AND 8 UNITS EVERY EVENING active Not Available Not Available No t Available glimepiri de 2 mg tablet active Not Available Not Available Not Available glimepiri de 1 mg tablet TAKE 1 TABLET DAILY active Not Available Not Available No t Available Novolin R Regular U-100 Insulin 100 unit/mL injection solution Take 5 units 3 times a day by injectio n route as needed for 90 days. active Not Available Not Available No t Available tamsulosi n 0.4 mg capsule TAKE 1 CAPSULE DAILY AT BEDTIME active Not Available Not Available No t Available insulin syringe U-100 with needle 0.5 mL 30 gauge x 5/16 04/04 completed Not Available Not Available Not Available OneTouch Ultra Test strips test bid active Not Available Not Available Not Available Sure Comfort Insulin Syringe 0.3 mL 30 gauge x 5/16 04/04 completed Not Available Not Available Not Available insulin syringe U-100 with needle 0.5 mL 31 gauge x 5/16 04/04 completed Not Available Not Available Not Available insulin syringe U-100 with needle 0.3 mL 30 use 3 times daily 04/04 completed Not Available Not Available Not Available Asprin Ec Low Dose 81 mg tablet,de layed release Take 1 tablet every other day by oral route. 11/18 completed Not Available Not Available Not Available Sure Comfort Insulin Syringe 0.3 mL 30 gauge x 1/2 use tid 12/21 completed Not Available Not Available Not Available BD Insulin Syringe Ult-Fine II 0.3 mL 31 gauge x /16 08/05 completed Not Available Not Available Not Available BD Ultra-Fin e Short Pen Needle 31 gauge x 5/16 06/19 completed Not Available Not Available Not Available BD Insulin Syringe Ultra-Fin e 0.3 mL 31 gauge x 16 USE FOR INJECTIO NS FOUR TIMES A DAY (MUST KEEP APPOINTM ENT ON DEC 14) active Not Available Not Available No t Available Farxiga 10 mg tablet Take 1 tablet every day by oral route. 12/13 completed Not Available Not Available Not Available Farxiga 5 mg tablet TAKE 2 TABLETS DAILY active Not Available Not Available No t Available Jardiance 10 mg tablet Take 1 tablet(s ) every day by oral route. active Not Available Not Available No t Available Bydureon BCise 2 mg/0.85 mL subcutane ous auto-inje ctor Inject 2 mg every week by subcutan eous route for 90 days. 2018 active 2 samples given to pt Not Available Not Available Not Available Vitals Date Recorded Body mass index (BMI) Body height Heart rate Body temperature Body weight Systolic blood pressure Diastolic blood pressure Provider Name and Address Organization Details Last Updated DateTime 3 20.8 kg/m2 162.56 cm 66 /min 98.1 [degF] 50667.6 8 g 112 mm[Hg] 68 mm[Hg] Not Available [facility] 3 06:12:17 Date Recorded Body mass index (BMI) Body height Oxygen saturation Oxygen saturation in Arterial blood by Pulse oximetry Heart rate Body temperature Body weight Systolic blood pressure Diastolic blood pressure Provider Name and Address Organization Details Last Updated DateTime 3 21.3 kg/m2 162.56 cm 97 % 97 % 68 /min 97.7 [degF] 62801.4 5 g 129 mm[Hg] 70 mm[Hg] Not Available [facility] 3 06:12:17 Date Recorded Body height Body mass index (BMI) Body weight Body temperature Heart rate Systolic blood pressure Diastolic blood pressure Provider Name and Address Organization Details Last Updated DateTime 3 162.56 cm 21.1 kg/m2 77134.8 6 g 98.2 [degF] 66 /min 128 mm[Hg] 60 mm[Hg] GUILLERMO Khan [employer] [facility] [employer] 3 10:32:32 Date Recorded Body height Body mass index (BMI) Body weight Provider Name and Address Organization Details Last Updated DateTime 06/19/2023 162.56 cm 20.9 kg/m2 49170.27 g Yfn Phelps Janina [employer] [facility] [employer] [facility] 06/19/2023 14:39:41 Date Recorded Body height Oxygen saturation Oxygen saturation in Arterial blood by Pulse oximetry Heart rate Body temperature Body mass index (BMI) Body weight Systolic blood pressure Diastolic blood pressure Provider Name and Address Organization Details Last Updated DateTime 4 162.56 cm 97 % 97 % 73
--- OUTSIDE RECORDS SUMMARY | 2025-03-14 11:12 | XMS_ITS | Continuity of Care Document ---
Author Organization [facility] Address [address] [place] [address] Phone Care Team Providers Care Talent Acquisition Sourcer Name Role Phone Garcia OD, Colin Unavailable Unavailable Procedures Procedure Date Office/outpatient Visit, Est Eye Exam & Treatment Eye Exam & Treatment Eye Exam & Treatment Advance Directives Directive Yes / No Effective Date File Name No Information Encounters Encounter Description Practice Location Reason(s) For Visit Diagnoses Date Provider Providers Copied on Encounter Office/outpat ient Visit, Est [facility], [address], [place], [place], [id number], [place] tel:[phone] [facility] No Information Sep-2 3-201 0 Garcai OD Colin. [address] , [address], [place], [place], [facility], [place]. tel:[phone] Referring Provider: [place], [facility]. tel:[phone] [facility], [address], [place], [place], [id number], [place] tel:[phone] [facility] No Information Sep- 8-200 9 Garcia OD Colin. [address] , [address], [place], [place], [facility], [place]. tel:[phone] Referring Provider: [facility], [place], [place], [facility]. tel:[phone] [facility], [address], [place], [place], [id number], tel:[phone] [facility] No Information 1200 8 Garcia OD Colin. [address] [facility] , [address], [place], [place], [facility], . tel:[phone] Referring Provider: Kade Almazanaraceli [address], [place], [address]. tel:[phone] [facility], [address], [place], [place], [id number], tel:[phone] [facility] No Information 200 7 Garcia OD Colin. [address] [facility] , [address], [place], [place], [facility], . tel:[phone] Referring Provider: Kade Almazanar[address], [place], [address]. tel:[phone] Family History Family Member Type Diagnosis Age At Onset No Information Payers Payer name Insurance type Covered green party ID Authoriza tion(s) No Information Social History Type Description Quantity Date Captured Comments Sex Male Smoking Status No Information Chief Complaint And Reason For Visit No Information Reason For Referral Reason For Referral No Information History Of Present Illness Encounter Date Complaint History Of Prese nt Illness No Information Functional Status Date Functional Assessmen t No Information Instructions Date Instruction Additional Infor mation No Information Assessments Type Assessment Date No Information Patient Care Teams Name Effective Dates (start - stop) Status Members No Information
--- OUTSIDE RECORDS SUMMARY | 2025-03-14 11:12 | XMS_ITS | Clinical Summary ---
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 Gender Identity Not on file Sexual Orientation Not on file Obstetrics History Last Filed Vital Signs Vital Sign Reading Time Taken Comments Blood Pressure 130/60 12/03/2024 12:50 PM PROGRAMMING INSTRUCTOR Pulse 63 12/03/2024 12:50 PM PROGRAMMING INSTRUCTOR Temperature - - Respiratory Rate 18 07/15/2024 1:10 PM CDT Oxygen Saturation - - Inhaled Oxygen Concentration - - Weight 58.5 kg (129 lb) 12/03/2024 12:50 PM PROGRAMMING INSTRUCTOR Height 162.6 cm (5' 4 ) 12/03/2024 12:50 PM PROGRAMMING INSTRUCTOR Body Mass Index 22.14 12/03/2024 12:50 PM PROGRAMMING INSTRUCTOR Plan of Treatment Health Maintenance Due Date Last Done Comments Colon Cancer Screening-Colonoscopy 1958 Depression Screening 1958 Fall Risk Assessment 1958 Hepatitis C Screening 1958 Prostate Cancer Screening-PSA 1958 DTaP/Tdap/Td Vaccine (1 - Tdap) 1969 Hepatitis B Screening 1976 Pneumococcal vaccine 65+ (1 of 2 - PCV) 1977 Zoster Vaccine (1 of 2) 2008 Abdominal Aortic Aneurysm (A AA) Screen 2023 Well Visit 65+ 2023 Covid-19 Vaccine ( season) 2024 11/04/2021, 02/14/2021, 01/28/2021 Influenza Vaccine (#1) 2024 Insurance [facility] MEDICARE [employer] MEDICARE Care Teams Front Desk Relationship Specialty Start Date End Date Ayan Us MD [address] [place] [address] PCP - General Internal Medicine 06/27/24
== END 2025-03-14 11:06 | disposition home or self-care (01) ==
PROVIDERS: PCP Internal Medicine; Visit Provider Internal Medicine
DX: Z12.2 Encounter for screening for malignant neoplasm of respiratory organs (principal); Z87.891 Personal history of nicotine dependence
CPT/HCPCS: 71271